=== PATIENT | female | born 1980 ===

== ENCOUNTER 2019-05-03 15:51 | Emergency (ER) | payer BC ==
[2019-05-03 16:11] VITALS: BP 120/81
--- NOTE | 2019-05-03 16:13 | UC ---
UC General HPI - HPI Summary HPI Summary: Patient is a 38yo female presenting with c/o fatigue and inability to sleep longer than 3 hours a night x3 weeks. Patient states she recently moved from [place] and has not been able to establish with a physician here. She states she has a h/o iron deficiency and vit D deficiency. Also notes h/o restless legs syndrome and GERD. States she is currently out of GERD medication and Remeron for sleeping. States restless legs getting worse over past week. Denies caffeine intake. Patient states she would like blood work done here for iron, vit D, and thyroid. Also states she would like a referral for a primary care provider. - History of Current Complaint Chief Complaint: UCGeneralIllness Stated Complaint: FATIGUE, UNABLE TO SLEEP Hx Obtained From: Patient Hx Last Menstrual Period: 04/10/19 Pain Intensity: 0 - Allergy/Home Medications Allergies/Adverse Reactions: Allergies Allergy/AdvReac Type Severity Reaction Status Date / Time gluten Allergy GI Upset Verified 05/03/19 16:05 Home Medications: Home Medications Cetirizine HCl [Zyrtec] 1 tab PO DAILY 05/03/19 [History Confirmed 05/03/19] Cholecalciferol (Vitamin D3) [Vitamin D3] 50,000 units PO ONCE PRN 05/03/19 [ History Confirmed 05/03/19] Dexlansoprazole [Dexilant] 1 tab PO DAILY 05/03/19 [History Confirmed 05/03/19] Fexofenadine (NF) [Brandi (NF)] 1 tab PO DAILY 05/03/19 [History Confirmed ] Fluticasone Propionate [Flonase Allergy Relief] 1 spray INH DAILY 05/03/19 [ History Confirmed 05/03/19] Ibuprofen [Advil] 600 mg PO ONCE PRN 05/03/19 [History Confirmed 05/03/19] Ramelteon [Rozerem] 1 tab PO DAILY 05/03/19 [History Confirmed 05/03/19] Suvorexant [Belsomra] 1 tab PO DAILY 05/03/19 [History Confirmed 05/03/19] buPROPion HCl [Bupropion HCl Sr] 300 mg PO DAILY 05/03/19 [History Confirmed ] PMH/Surg Hx/FS Hx/Imm Hx GI/ History: Gastroesophageal Reflux - x20 years - Surgical History Surgical History: Yes Surgery Procedure, Year, and Place: cholecystectomy. . upper endoscopy. Tonsilectomy - Family History Known Family History: Positive: Non-Contributory - Social History Alcohol Use: None Substance Use Type: None Smoking Status (MU): Never Smoked Tobacco Review of Systems All Other Systems Reviewed And Are Negative: Yes Constitutional: Positive: Fatigue Respiratory: Positive: Negative Cardiovascular: Positive: Negative Gastrointestinal: Positive: Other - GERD symptoms Musculoskeletal: Positive: Negative Neurological: Positive: Negative Psychological: Positive: Negative Physical Exam Triage Information Reviewed: Yes Appearance: Well-Appearing, No Pain Distress, Well-Nourished Vital Signs: Initial Vital Signs Temp 98.4 F 05/03/19 16:00 Pulse 88 05/03/19 16:00 Resp 18 05/03/19 16:00 BP 120/81 05/03/19 16:00 Pulse Ox 98 05/03/19 16:00 Vital Signs Reviewed: Yes Eyes: Positive: Conjunctiva Clear ENT: Positive: Hearing grossly normal Neck: Positive: Supple Respiratory Exam: Normal Respiratory: Positive: Lungs clear, Normal breath sounds, No respiratory distress Cardiovascular Exam: Normal Cardiovascular: Positive: RRR, No Murmur Neurological: Positive: Alert Psychological: Positive: Age Appropriate Behavior Skin Exam: Normal Course/Dx - Course Course Of Treatment: Patient received blood work here, including CBC, BMP, TSH, vit D, and iron testing. I refilled patient's Dexilant. Patient showed me her current prescription and states it is the only thing that works for her and she "has been taking it for years." I informed patient that it is recommended that she contact her PCP in [place] who prescribed her Remeron in the past and ask for emergency refill until able to establish here with pcp. I also educated on nonpharmacologic treatment of restless leg syndrome. I provided patient with physician referral and instructed to follow up within the week. Patient voiced understanding and agreed with plan. - Diagnoses Provider Diagnosis: Encounter for blood test for routine general physical examination, Encounter for medication refill Discharge ED - Sign-Out/Discharge Documenting (check all that apply): Patient Departure All imaging exams completed and their final reports reviewed: No Studies - Discharge Plan Condition: Stable Disposition: HOME Prescriptions: Dexlansoprazole [Dexilant] 60 mg PO DAILY #30 cap.bp Patient Education Materials: Restless Legs Syndrome (ED), Gastroesophageal Reflux Disease (ED) Referrals: [facility] [Outside] - 7 Days Additional Instructions: You had blood work done today here at the urgent care. You also received a refill of your dexilant. It is recommended that you contact your primary care provider to discuss a refill of your Remeron until you are able to establish with a physician here. Follow up with the physician referral listed below to establish with a physician and further discuss your lab work. - Billing Disposition and Condition Condition: STABLE Disposition: Home
[2019-05-04 12:08] LABS: ABS Eosinophils 0.2 10^3/ul (0-0.6); ABS Lymphocytes 1.4 10^3/ul (1.0-4.8); ABS Monocytes 0.5 10^3/ul (0-0.8); ABS Neutrophils 4.2 10^3/ul (1.5-7.7); Eosinophil % 3.4 %; Hematocrit 38 % (35-47); Hemoglobin 12.9 g/dL (12.0-16.0); Lymphocyte % 22.6 %; Mean Corpuscular HGB Conc 34 g/dL (31-36); Mean Corpuscular Hemoglobin 29 pg (27-31); Mean Corpuscular Volume 87 fL (80-97); Mean Platelet Volume 8.9 fL (7.4-10.4); Nucleated Red Blood Cells % 0.1; Platelet Count 259 10^3/uL (150-450); Red Cell Distribution Width 14 % (10-15); White Blood Count 6.4 10^3/uL (3.5-10.8)
[2019-05-04 12:14] LABS: % Iron Saturation 31 % (15-55); Iron 128 ug/dL (50-212); Total Iron Binding Capacity 417 mcg/dL (250-450); Transferrin 298 mg/dL (203-362)
[2019-05-04 12:17] LABS: Anion Gap 8 mmol/L (2-11); CO2 Carbon Dioxide 24 mmol/L (22-32); Calcium 9.8 mg/dL (8.6-10.3); Chloride 108 mmol/L (101-111); Potassium 3.9 mmol/L (3.5-5.0); Sodium 140 mmol/L (135-145)
[2019-05-04 12:23] LABS: BUN/Creatinine Ratio 14.4 (8-20); Blood Urea Nitrogen 13 mg/dL (6-24); EGFR African American 85.7 (>60); EGFR Non-African American 70.8 (>60); Glucose 99 mg/dL (70-100)
[2019-05-04 12:24] LABS: TSH (Thyroid Stimulating Horm) 0.82 mcIU/mL (0.34-5.60)
[2019-05-04 12:38] LABS: Vitamin D Total 25(OH) 36.7 ng/mL (20-50)
--- NOTE | 2019-05-04 15:26 | UC ---
- Progress Note Progress Note: cbc with diff bmp iron studies tsh vit D reviewed and non concerning - no change vidyaj Course/Dx - Diagnoses Provider Diagnoses: Encounter for blood test for routine general physical examination, Encounter for medication refill Discharge ED - Sign-Out/Discharge Documenting (check all that apply): Post-Discharge Follow Up All imaging exams completed and their final reports reviewed: No Studies - Discharge Plan Condition: Stable Disposition: HOME Prescriptions: Dexlansoprazole [Dexilant] 60 mg PO DAILY #30 cap.bp Patient Education Materials: Gastroesophageal Reflux Disease (ED), Restless Legs Syndrome (ED) Referrals: [facility] [place] [facility] [Outside] - 7 Days Additional Instructions: You had blood work done today here at the urgent care. You also received a refill of your dexilant. It is recommended that you contact your primary care provider to discuss a refill of your Remeron until you are able to establish with a physician here. Follow up with the physician referral listed below to establish with a physician and further discuss your lab work. - Billing Disposition and Condition Condition: STABLE Disposition: Home
== END 2019-05-03 17:03 | disposition home or self-care (01) ==
LOC: UCEAST 15:51
DX: Z01.89 Encounter for other specified special examinations (principal); Z76.0 Encounter for issue of repeat prescription; K21.9 Gastro-esophageal reflux disease without esophagitis; R53.83 Other fatigue; Z91.018 Allergy to other foods; Z79.899 Other long term (current) drug therapy
CPT/HCPCS: 36415; 80048; 82306; 83540; 83550; 84443; 85025; 99212; G0463

== ENCOUNTER 2020-12-14 00:20 | Inpatient (IN) ==
[2020-12-14 01:15] LABS: ABS Eosinophils 0.1 10^3/ul (0-0.6); ABS Lymphocytes 0.6 10^3/ul (1.0-4.8); ABS Monocytes 0.6 10^3/ul (0-0.8); ABS Neutrophils 10.9 10^3/ul (1.5-7.7); Eosinophil % 0.5 %; Hematocrit 39 % (35-47); Hemoglobin 13.4 g/dL (12.0-16.0); Mean Corpuscular HGB Conc 35 g/dL (31-36); Mean Corpuscular Hemoglobin 31 pg (27-31); Mean Corpuscular Volume 90 fL (80-97); Mean Platelet Volume 8.2 fL (7.4-10.4); Platelet Count 244 10^3/uL (150-450); Red Blood Count 4.28 10^6 /uL (3.70-4.87); Red Cell Distribution Width 13 % (10-15); White Blood Count 12.3 10^3/uL (3.5-10.8)
[2020-12-14 01:33] LABS: ALT 14 U/L (7-52); AST 10 U/L (13-39); Albumin 4.2 g/dL (3.2-5.2); Albumin/Globulin Ratio 1.6 (1-3); Alkaline Phosphatase 37 U/L (35-149); Anion Gap 8 mmol/L (2-11); Blood Urea Nitrogen 15 mg/dL (6-24); C Reactive Protein 11.21 mg/L (<8.01); CO2 Carbon Dioxide 24 mmol/L (22-32); Calcium 8.5 mg/dL (8.6-10.3); Chloride 106 mmol/L (101-111); EGFR African American 85.9 (>60); Globulin 2.6 g/dL (2-4); Glucose 102 mg/dL (70-100); Potassium 3.8 mmol/L (3.5-5.0); Sodium 138 mmol/L (135-145); Total Protein 6.8 g/dL (6.4-8.9)
[2020-12-14] MEDS ORDERED: Morphine 4 MG/ML VIAL (1 ml) IV ONE (01:39)
[2020-12-14] MEDS ORDERED: Ondansetron 4 mg VIAL 2 MG/ML 2 ml VIAL IV ONE (01:39)
[2020-12-14 01:41] LABS: HCG Pregnancy < 0.60 mIU/mL
[2020-12-14] MEDS ORDERED: HYDROmorphone 0.5 MG/0.5 ML SYRINGE IV ONE (01:54)
[2020-12-14] MEDS ORDERED: Iohexol 300 (CONTRAST) 10 ML SDV IV ONE (01:56)
[2020-12-14] MEDS: NS 0.9% 1000 ml BAG 2,000 ML IV ONE ×2 (02:04→02:43)
[2020-12-14] MEDS ORDERED: diPHENhydraMINE IV 50 MG/ML 1 ml VIAL (BENADRYL) IV PRN (05:29)
[2020-12-14] MEDS ORDERED: HYDROmorphone 1 MG/1 ML SYRINGE IV PRN (05:41)
[2020-12-14 06:22] LABS: ABS Lymphocytes 0.5 10^3/ul (1.0-4.8); ABS Monocytes 0.6 10^3/ul (0-0.8); ABS Neutrophils 8.1 10^3/ul (1.5-7.7); Eosinophil % 0.3 %; Hematocrit 34 % (35-47); Hemoglobin 11.2 g/dL (12.0-16.0); Lymphocyte % 5.1 %; Mean Corpuscular HGB Conc 33 g/dL (31-36); Mean Corpuscular Hemoglobin 30 pg (27-31); Mean Corpuscular Volume 91 fL (80-97); Mean Platelet Volume 7.8 fL (7.4-10.4); Platelet Count 216 10^3/uL (150-450); Red Blood Count 3.72 10^6 /uL (3.70-4.87); Red Cell Distribution Width 13 % (10-15); White Blood Count 9.2 10^3/uL (3.5-10.8)
[2020-12-14 06:25] LABS: INR 1.02 (0.86-1.15)
[2020-12-14] MEDS ORDERED: Pantoprazole VIAL 40 MG VIAL IV ONE (08:54)
[2020-12-14] MEDS ORDERED: Pantoprazole VIAL 40 MG VIAL IV SCH ×2 (09:00)
[2020-12-14] MEDS ORDERED: Budesonide/Formote 80/4.5(NF) MDI INH SCH (09:00)
[2020-12-14] MEDS ORDERED: Fluticasone NASAL SPRAY 50MCG 16 gm SPRAY BTL BOTH NARES SCH (09:00)
[2020-12-14] MEDS ORDERED: diPHENhydraMINE IV 50 MG/ML 1 ml VIAL (BENADRYL) IV ONE (09:35)
[2020-12-14] MEDS: Pantoprazole 80 mg in NS BAG 80 MG/250 ML BAG IV SCH (11:17)
[2020-12-14] MEDS: HYDROmorphone 1 MG/1 ML SYRINGE IV PRN ×2 (13:00→22:34)
[2020-12-14] MEDS: Ondansetron 4 mg VIAL 2 MG/ML 2 ml VIAL IV PRN ×2 (13:02→19:58)
[2020-12-14] MEDS ORDERED: Albuterol 2.5mg/3 ml (0.083%) NEB.SOLN INH ONE ×2 (15:17→15:20)
[2020-12-14] MEDS ORDERED: Lidocaine 2% PF 5 ML VIAL ONE (15:25)
[2020-12-14] MEDS ORDERED: Propofol 10 mg/ml 100 ML BTL 100 ML ONE (15:57)
[2020-12-14] MEDS ORDERED: SUVOREXANT 20 MG PO PRN (16:32)
[2020-12-14 17:44] LABS: Hematocrit 32 % (35-47); Hemoglobin 11.2 g/dL (12.0-16.0)
[2020-12-14] MEDS: NS 0.9% 1000 ml BAG 1,000 ML IV SCH (18:20)
[2020-12-14] MEDS: PROGESTERONE 100 MG PO SCH (23:53)
[2020-12-15] MEDS: Pantoprazole 80 mg in NS BAG 80 MG/250 ML BAG IV SCH ×3 (01:14→22:44)
[2020-12-15] MEDS: NS 0.9% 1000 ml BAG 1,000 ML IV SCH ×3 (01:14→22:44)
[2020-12-15] MEDS: Albuterol HFA INHALER 8 gm MDI INH PRN ×3 (02:52→21:27)
[2020-12-15 04:52] LABS: Hematocrit 29 % (35-47); Hemoglobin 9.7 g/dL (12.0-16.0); Mean Corpuscular HGB Conc 34 g/dL (31-36); Mean Corpuscular Hemoglobin 31 pg (27-31); Mean Corpuscular Volume 90 fL (80-97); Mean Platelet Volume 7.3 fL (7.4-10.4); Platelet Count 176 10^3/uL (150-450); Red Blood Count 3.17 10^6 /uL (3.70-4.87); Red Cell Distribution Width 13 % (10-15); White Blood Count 5.6 10^3/uL (3.5-10.8)
[2020-12-15 05:06] LABS: Anion Gap 6 mmol/L (2-11); Blood Urea Nitrogen 8 mg/dL (6-24); CO2 Carbon Dioxide 22 mmol/L (22-32); Chloride 110 mmol/L (101-111); EGFR African American 97.1 (>60); EGFR Non-African American 80.3 (>60); Glucose 103 mg/dL (70-100); Magnesium 1.5 mg/dL (1.9-2.7); Sodium 138 mmol/L (135-145)
[2020-12-15] MEDS ORDERED: Potassium Chlor 20 meq TAB.ER PO ONE (08:06)
[2020-12-15] MEDS ORDERED: Calcium (OSCAL) 500 mg TAB PO ONE (08:13)
[2020-12-15] MEDS ORDERED: Magnesium Sulfate IV 3 GM in NS 0.9% 100 ml BAG 100 ML IVPB ONE (08:14)
[2020-12-15] MEDS: HYDROmorphone 1 MG/1 ML SYRINGE IV PRN (10:03)
[2020-12-15 11:33] LABS: Hematocrit 30 % (35-47)
[2020-12-15] MEDS ORDERED: Mometasone/Formoter 200/5 MDI INH SCH (12:00)
[2020-12-15 13:16] LABS: % Iron Saturation 59 % (15-55); Iron 148 ug/dL (50-212); Total Iron Binding Capacity 249 mcg/dL (250-450); Transferrin 178 mg/dL (203-362); Unsaturated Iron Binding < 234 ug/dL
[2020-12-15] MEDS ORDERED: ROTIGOTINE 1 MG TOPICAL PRN (13:30)
[2020-12-15 13:38] LABS: Ferritin 68.6 ng/mL (11-307)
[2020-12-15 13:42] LABS: Vitamin B12 823 pg/mL (180-914)
[2020-12-15] MEDS: oxyCODONE/Acetamin 5/325 mg TAB PO PRN (14:15)
[2020-12-15] MEDS: [UNRECOGNIZED DRUG - OTHER] BOTH NARES PRN (15:55)
[2020-12-15] MEDS: FLUTICASONE FUROATE BOTH NARES PRN (15:55)
[2020-12-15] MEDS: PROGESTERONE 100 MG PO SCH (17:45)
[2020-12-15] MEDS ORDERED: NS IV ONE (19:30)
[2020-12-15] MEDS ORDERED: SODIUM PHOSPHATE IV ONE (19:30)
[2020-12-15] MEDS ORDERED: PTO: Budesonide/Formote 160/4.5(NF) MDI INH SCH (21:00)
[2020-12-15] MEDS ORDERED: Amphetamine MIXED SALT 10mgTAB PO SCH (21:00)
[2020-12-16] MEDS: Ondansetron 4 mg VIAL 2 MG/ML 2 ml VIAL IV PRN ×2 (01:20→08:34)
[2020-12-16] MEDS ORDERED: Benzocaine/Menthol LOZ PO PRN (05:03)
[2020-12-16 08:35] LABS: Hematocrit 28 % (35-47); Hemoglobin 9.7 g/dL (12.0-16.0); Mean Corpuscular HGB Conc 35 g/dL (31-36); Mean Corpuscular Hemoglobin 31 pg (27-31); Mean Corpuscular Volume 90 fL (80-97); Mean Platelet Volume 8.1 fL (7.4-10.4); Platelet Count 188 10^3/uL (150-450); Red Blood Count 3.09 10^6 /uL (3.70-4.87); Red Cell Distribution Width 13 % (10-15); White Blood Count 5.8 10^3/uL (3.5-10.8)
[2020-12-16] MEDS: oxyCODONE/Acetamin 5/325 mg TAB PO PRN (08:35)
[2020-12-16] MEDS ORDERED: Mometasone/Formoter 100/5 MDI INH SCH (09:00)
[2020-12-16] MEDS: Pantoprazole 80 mg in NS BAG 80 MG/250 ML BAG IV SCH (09:03)
[2020-12-16 09:15] LABS: Calcium 7.2 mg/dL (8.6-10.3); EGFR African American 111.5 (>60); EGFR Non-African American 92.1 (>60); Magnesium 1.9 mg/dL (1.9-2.7); Phosphorus 2.3 mg/dL (2.5-5.0)
[2020-12-16] MEDS: NS 0.9% 1000 ml BAG 1,000 ML IV SCH (10:16)
[2020-12-16] MEDS ORDERED: Potassium Chlor 20 meq TAB.ER PO ONE (10:38)
[2020-12-16] MEDS: FLUTICASONE FUROATE BOTH NARES PRN (13:52)
[2020-12-16] MEDS: [UNRECOGNIZED DRUG - OTHER] BOTH NARES PRN (13:52)
[2020-12-16 15:37] VITALS: BP 111/63
== END 2020-12-16 17:25 | disposition home or self-care (01) | DRG 370 ==
LOC: SUATTDRO → ED 00:20 → MED 09:02
PROVIDERS: ADMIT Internal Medicine; ATTEND Internal Medicine
PROC: O.GIEGD (2020-12-14 14:40)